=== PATIENT | male | born 1980 ===

== ENCOUNTER 2017-10-29 15:29 | Outpatient (CLI) | payer BC | END 2017-10-29 15:30 | disposition home or self-care (01) | LOC: BICRAD 15:29 | PROVIDERS: ATTEND Chiropractor | DX: M54.2 Cervicalgia (principal); M54.6 Pain in thoracic spine; M54.10 Radiculopathy, site unspecified; G89.29 Other chronic pain; M47.892 Other spondylosis, cervical region; M47.894 Other spondylosis, thoracic region | CPT/HCPCS: 72040; 72070 ==